=== PATIENT | male | born 1970 | race Caucasian/White ===

== ENCOUNTER 2021-06-06 09:10 | Outpatient (CLI) | payer BC, SELFPAY ==
[2021-06-06 09:54] LABS: Hematocrit 46.9 % (42.0-52.0); Hemoglobin 17.7 g/dL (14.0-18.0)
[2021-06-12 21:02] LABS: Estradiol, Ultrasensitive 16 pg/mL (< OR = 29)
[2021-06-14 05:31] LABS: Testosterone Total 156 ng/dL (250-1100)
== END 2021-06-06 09:11 | disposition home or self-care (01) ==
LOC: ANHLAB 09:12
PROVIDERS: Visit Provider Urology
DX: E29.1 Testicular hypofunction (principal)
CPT/HCPCS: 36415; 82670; 84403; 85014; 85018

== ENCOUNTER 2023-08-22 08:01 | Outpatient (CLI) | payer BC, SELFPAY ==
--- NOTE | ~2023-08-22 | MR_ITS ---
MRI of the right shoulder Technique: Axial proton-density fat-sat images, coronal proton density fat-sat and T2 fat-sat images, and sagittal T1-weighted and T2 fat-sat images were acquired. Clinical History: Strain Findings: There is [id number] AC joint degenerative change. Subacromial spur present. Coracocla vicular, coracoacromial, and coracohumeral ligaments are intact. Supraspinatus and infraspinatus tendons are intact, without partial or full-thickness tear. Subscapul yulissa tendon is intact, with mild tendinosis. Tendon of the long head of the biceps is intact. No labral tear identified. Inferior glenohumeral ligament is intact. There is mild chondromalacia of the humeral head. No signif icant joint effusion present. No fluid distention of the subacromial/subdeltoid bursa. No muscle atro phy or edema evident. Impression: [id number] AC joint degenerative change. No rotator cuff tear or labral tear seen. Mild chondromalacia of the humeral head. Reviewed, dictated and finalized at [facility]. Impression: [id number] AC joint degenerative change. No rotator cuff tear or labral tear seen. Mild chondromalacia of the humeral head.
== END 2023-08-22 08:02 ==
PROVIDERS: PCP Orthopaedic Surgery; Visit Provider Orthopaedic Surgery
DX: S46.119A Strain of muscle, fascia and tendon of long head of biceps, unspecified arm, initial encounter (principal); X58.XXXA Exposure to other specified factors, initial encounter; M19.011 Primary osteoarthritis, right shoulder
CPT/HCPCS: 73221